=== PATIENT | female | born 1955 | race Caucasian/White ===

== ENCOUNTER 2019-04-09 15:09 | Inpatient (IN) ==
[2019-04-09] MEDS ORDERED: Ipratropium/Albuterol Neb 3 ML IH ONE (15:44)
[2019-04-09 16:11] LABS: Basophils # 0.1 K/mcL (0.0-0.2); Basophils % 0.3 %; Eosinophils % 0.1 %; Hematocrit 36.9 % (35.3-44.9); Hemoglobin 12.3 g/dL (11.5-15.4); Immature Granulocytes % 3.5 % (0-4); Lymphocytes % 4.3 %; Mean Corpuscular HGB Conc 33.3 g/dL (31.6-35.5); Mean Corpuscular Volume 92.9 fL (83.0-100.0); Mean Platelet Volume 9.1 fL (9.4-12.4); Monocytes # 1.1 K/mcL (0.0-1.3); Platelet Count 337 K/mcL (140-400); Red Blood Count 3.97 M/mcL (3.82-4.97); Red Cell Distribution Width 13.1 % (11.5-14.5); Segmented Neutrophils % 86.8 %
[2019-04-09 16:16] LABS: VBG HCO3 30 mEq/L (21-27); VBG PCO2 49 mmHg (41-51); VBG PO2 59 mmHg (25-50)
[2019-04-09] MEDS ORDERED: Isovue-370 500 ML BOTTLE IVP ONE (16:17)
[2019-04-09 16:41] LABS: BUN/Creatinine Ratio 15 (6-26); Blood Urea Nitrogen 13 mg/dL (8-23); Calcium 8.8 mg/dL (8.6-10.3); Carbon Dioxide 28 mEq/L (23-29); Chloride 95 mEq/L (98-107); Glucose 277 mg/dL (70-105); Osmolality,Calculated 288 (280-300); Potassium 4.1 mEq/L (3.5-5.1); Sodium 134 mEq/L (136-145); Troponin I 0.03 ng/mL (< 0.04); eGFR For African Americans > 60 (> 60); eGFR For Non-African Americans > 60 (> 60)
[2019-04-09] MEDS ORDERED: levoFLOXacin 750 MG/150 ML 750 MG/150 ML BAG IVPB ONE (17:01)
[2019-04-09] MEDS ORDERED: Naloxone 0.4 MG/ML INJ IVP PRN (17:08)
[2019-04-09] MEDS ORDERED: Ondansetron 4 MG/2 ML VIAL IVP PRN (17:08)
[2019-04-09 17:35] LABS: Prothrombin Time 22.4 Seconds (9.4-12.1)
[2019-04-09 17:38] LABS: Activated Partial Thrombo Time 36.9 Seconds (26.0-36.0)
[2019-04-09] MEDS ORDERED: MethylPREDNISolone 40 MG/ML VIAL IVP SCH (18:00)
[2019-04-09] MEDS ORDERED: *HR* OxyCODONE/APAP 10/325 TABLET PO STA (18:34)
[2019-04-09] MEDS: Ipratropium/Albuterol Neb 3 ML IH SCH (20:17)
[2019-04-09] MEDS ORDERED: Apixaban 5 MG TABLET PO SCH (21:00)
[2019-04-09] MEDS ORDERED: traZODone 50 MG TABLET PO SCH (21:00)
[2019-04-09] MEDS ORDERED: Metoprolol 100 MG TABLET PO SCH (21:00)
[2019-04-09] MEDS: MethylPREDNISolone 40 MG/ML VIAL IVP SCH (21:40)
[2019-04-09] MEDS: Pregabalin 75 MG CAPSULE PO SCH (21:43)
[2019-04-09] MEDS: Apixaban 5 MG TABLET PO SCH (21:43)
[2019-04-09] MEDS ORDERED: traZODone 50 MG TABLET PO ONE (23:22)
[2019-04-10] MEDS: Ipratropium/Albuterol Neb 3 ML IH SCH ×7 (00:03→23:20)
[2019-04-10] MEDS: MethylPREDNISolone 40 MG/ML VIAL IVP SCH ×3 (00:32→16:17)
[2019-04-10] MEDS ORDERED: *HR* OxyCODONE Immed Rel 5 MG TABLET PO ONE (02:55)
[2019-04-10 04:18] LABS: Adenovirus Not Detected (Not Detect); Bordetella Pertussis Not Detected (Not Detect); Chlamydophila pneumoniae Not Detected (Not Detect); Coronavirus 229E Not Detected (Not Detect); Coronavirus HKU1 Not Detected (Not Detect); Coronavirus NL63 Not Detected (Not Detect); Coronavirus OC43 Not Detected (Not Detect); Human Metapneumovirus Not Detected (Not Detect); Human Rhinovirus/Enterovirus Not Detected (Not Detect); Influenza A Subtype 2009 H1 Not Detected (Not Detect); Influenza B Not Detected (Not Detect); Mycoplasma pneumoniae Not Detected (Not Detect); Parainfluenza Virus 1 Not Detected (Not Detect); Parainfluenza Virus 2 Not Detected (Not Detect); Parainfluenza Virus 3 Not Detected (Not Detect); Parainfluenza Virus 4 Not Detected (Not Detect); Respiratory Syncytial Virus Not Detected (Not Detect)
[2019-04-10 04:18] LABS: Basophils % 0.2 %; Hematocrit 34.2 % (35.3-44.9); Hemoglobin 11.1 g/dL (11.5-15.4); Immature Granulocytes % 2.4 % (0-4); Lymphocytes # 0.9 K/mcL (0.6-4.6); Mean Corpuscular HGB Conc 32.5 g/dL (31.6-35.5); Mean Corpuscular Hemoglobin 31.3 pg (28.0-33.3); Mean Corpuscular Volume 96.3 fL (83.0-100.0); Mean Platelet Volume 9.1 fL (9.4-12.4); Monocytes # 0.5 K/mcL (0.0-1.3); Monocytes % 2.2 %; Neutrophils # 20.5 K/mcL (1.6-8.9); Platelet Count 297 K/mcL (140-400); Red Blood Count 3.55 M/mcL (3.82-4.97); Red Cell Distribution Width 12.8 % (11.5-14.5); Segmented Neutrophils % 91.2 %; White Blood Count 22.4 K/mcL (4.3-11.1)
[2019-04-10 04:46] LABS: BUN/Creatinine Ratio 14 (6-26); Blood Urea Nitrogen 10 mg/dL (8-23); Calcium 8.7 mg/dL (8.6-10.3); Carbon Dioxide 27 mEq/L (23-29); Chloride 95 mEq/L (98-107); Glucose 224 mg/dL (70-105); Magnesium 2.1 mg/dL (1.6-2.6); Osmolality,Calculated 282 (280-300); Potassium 4.5 mEq/L (3.5-5.1); Sodium 133 mEq/L (136-145); eGFR For African Americans > 60 (> 60); eGFR For Non-African Americans > 60 (> 60)
[2019-04-10] MEDS: Budesonide/Formoterol 160/4.5 1 PUFF INH IH SCH (07:19)
[2019-04-10] MEDS ORDERED: FLUoxetine 20 MG CAPSULE PO SCH (09:00)
[2019-04-10] MEDS: Aspirin Enteric Coated 81 MG Tablet PO SCH (09:28)
[2019-04-10] MEDS: BuPROPion XL (24 HR) 150 MG TABLET PO SCH (09:28)
[2019-04-10] MEDS: Loratadine 10 MG TABLET PO SCH (09:28)
[2019-04-10] MEDS: Cholecalciferol (D-3) 1,000 UNIT (25MCG) TABLET PO SCH (09:28)
[2019-04-10] MEDS: Apixaban 5 MG TABLET PO SCH ×2 (09:29→21:22)
[2019-04-10] MEDS: Pregabalin 75 MG CAPSULE PO SCH ×2 (09:29→21:21)
[2019-04-10] MEDS: cefTRIAXone 1,000 MG in Water for inj. (sterile) 10 ML IVP SCH (09:37)
[2019-04-10] MEDS: Azithromycin 500 MG in 0.9 % Sodium Chloride 250 ML IVPB SCH (09:41)
[2019-04-10] MEDS: Fluticasone Propionate Nasal 50 MCG/SPRAY BOTTLE NS SCH (09:44)
[2019-04-10] MEDS ORDERED: tiZANidine 4 MG TABLET PO PRN (10:19)
[2019-04-10] MEDS: *HR* OxyCODONE/APAP 10/325 TABLET PO PRN ×2 (13:10→20:12)
[2019-04-10] MEDS ORDERED: Cefepime HCl 1,000 MG in Water for inj. (sterile) 10 ML IVP ONE (17:02)
[2019-04-10] MEDS: traZODone 50 MG TABLET PO SCH (21:20)
[2019-04-10] MEDS: Azelastine 0.1% Nasal Spray 30 ML BOTTLE NS SCH (21:22)
[2019-04-10] MEDS: Tobramycin/Dex Opth DROPS 2.5 ML BOTTLE RIGHT EYE SCH (21:23)
[2019-04-11] MEDS: *HR* OxyCODONE/APAP 10/325 TABLET PO PRN ×3 (00:41→21:47)
[2019-04-11] MEDS: MethylPREDNISolone 40 MG/ML VIAL IVP SCH ×3 (00:42→15:21)
[2019-04-11] MEDS: Ipratropium/Albuterol Neb 3 ML IH SCH ×5 (03:40→19:49)
[2019-04-11 05:39] LABS: Basophils % 0.2 %; Hemoglobin 10.9 g/dL (11.5-15.4); Immature Granulocytes % 2.2 % (0-4); Lymphocytes # 0.9 K/mcL (0.6-4.6); Lymphocytes % 4.2 %; Mean Corpuscular HGB Conc 32.1 g/dL (31.6-35.5); Mean Corpuscular Hemoglobin 31.1 pg (28.0-33.3); Mean Corpuscular Volume 96.9 fL (83.0-100.0); Mean Platelet Volume 9.2 fL (9.4-12.4); Monocytes # 0.8 K/mcL (0.0-1.3); Monocytes % 3.8 %; Neutrophils # 19.1 K/mcL (1.6-8.9); Platelet Count 331 K/mcL (140-400); Red Blood Count 3.51 M/mcL (3.82-4.97); Red Cell Distribution Width 12.8 % (11.5-14.5); Segmented Neutrophils % 89.6 %; White Blood Count 21.3 K/mcL (4.3-11.1)
[2019-04-11 05:49] LABS: BUN/Creatinine Ratio 16 (6-26); Blood Urea Nitrogen 12 mg/dL (8-23); Calcium 8.9 mg/dL (8.6-10.3); Carbon Dioxide 28 mEq/L (23-29); Chloride 95 mEq/L (98-107); Glucose 373 mg/dL (70-105); Osmolality,Calculated 291 (280-300); Potassium 4.1 mEq/L (3.5-5.1); Sodium 133 mEq/L (136-145); eGFR For African Americans > 60 (> 60); eGFR For Non-African Americans > 60 (> 60)
[2019-04-11] MEDS: Budesonide/Formoterol 160/4.5 1 PUFF INH IH SCH (07:33)
[2019-04-11] MEDS: Pregabalin 75 MG CAPSULE PO SCH ×2 (08:35→21:31)
[2019-04-11] MEDS: FLUoxetine 20 MG CAPSULE PO SCH (08:36)
[2019-04-11] MEDS: Loratadine 10 MG TABLET PO SCH (08:36)
[2019-04-11] MEDS: BuPROPion XL (24 HR) 150 MG TABLET PO SCH (08:37)
[2019-04-11] MEDS: Apixaban 5 MG TABLET PO SCH ×2 (08:37→21:30)
[2019-04-11] MEDS: Cholecalciferol (D-3) 1,000 UNIT (25MCG) TABLET PO SCH (08:37)
[2019-04-11] MEDS: Azithromycin 500 MG in 0.9 % Sodium Chloride 250 ML IVPB SCH (08:39)
[2019-04-11] MEDS: cefTRIAXone 1,000 MG in Water for inj. (sterile) 10 ML IVP SCH (08:41)
[2019-04-11] MEDS: Aspirin Enteric Coated 81 MG Tablet PO SCH (08:45)
[2019-04-11] MEDS: Metoprolol 100 MG TABLET PO SCH ×2 (08:47→21:31)
[2019-04-11] MEDS ORDERED: Pregabalin 75 MG CAPSULE PO ONE (09:15)
[2019-04-11] MEDS: Fluticasone Propionate Nasal 50 MCG/SPRAY BOTTLE NS SCH (10:16)
[2019-04-11] MEDS: Tobramycin/Dex Opth DROPS 2.5 ML BOTTLE RIGHT EYE SCH ×2 (10:19→21:36)
[2019-04-11] MEDS ORDERED: Dextrose Gel 15 GM/37.5 ML TUBE PO PRN ×2 (12:22)
[2019-04-11] MEDS ORDERED: D5% in Water 1,000 ML IVC PRN (12:22)
[2019-04-11] MEDS ORDERED: *HR* Dextrose 50 % in Water (Syg) 50 ML SYRINGE IVP PRN (12:22)
[2019-04-11] MEDS: Insulin LISPRO 300 UNITS/3 ML VIAL SQ SCH ×2 (17:37→21:31)
[2019-04-11] MEDS: traZODone 50 MG TABLET PO SCH (21:30)
[2019-04-11] MEDS: Azelastine 0.1% Nasal Spray 30 ML BOTTLE NS SCH (21:48)
[2019-04-12] MEDS: Ipratropium/Albuterol Neb 3 ML IH SCH ×7 (00:05→23:42)
[2019-04-12] MEDS ORDERED: Insulin DETEMIR 100 UNIT/ML X5UNITS SQ ONE (00:10)
[2019-04-12] MEDS: MethylPREDNISolone 40 MG/ML VIAL IVP SCH ×3 (01:00→20:06)
[2019-04-12 03:16] LABS: Basophils % 0.1 %; Hematocrit 30.2 % (35.3-44.9); Hemoglobin 10.1 g/dL (11.5-15.4); Immature Granulocytes % 1.4 % (0-4); Lymphocytes # 1.3 K/mcL (0.6-4.6); Lymphocytes % 7.5 %; Mean Corpuscular HGB Conc 33.4 g/dL (31.6-35.5); Mean Corpuscular Hemoglobin 31.3 pg (28.0-33.3); Mean Corpuscular Volume 93.5 fL (83.0-100.0); Mean Platelet Volume 8.9 fL (9.4-12.4); Monocytes % 5.9 %; Platelet Count 338 K/mcL (140-400); Red Blood Count 3.23 M/mcL (3.82-4.97); Red Cell Distribution Width 12.6 % (11.5-14.5); Segmented Neutrophils % 85.1 %; White Blood Count 17.6 K/mcL (4.3-11.1)
[2019-04-12 03:27] LABS: BUN/Creatinine Ratio 24 (6-26); Blood Urea Nitrogen 17 mg/dL (8-23); Calcium 8.8 mg/dL (8.6-10.3); Carbon Dioxide 30 mEq/L (23-29); Chloride 96 mEq/L (98-107); Glucose 293 mg/dL (70-105); Osmolality,Calculated 284 (280-300); Potassium 4.3 mEq/L (3.5-5.1); Sodium 131 mEq/L (136-145); eGFR For African Americans > 60 (> 60); eGFR For Non-African Americans > 60 (> 60)
[2019-04-12 06:32] LABS: Estimated Average Glucose 171 mg/dl
[2019-04-12] MEDS: Budesonide/Formoterol 160/4.5 1 PUFF INH IH SCH (07:50)
[2019-04-12] MEDS: Aspirin Enteric Coated 81 MG Tablet PO SCH (08:10)
[2019-04-12] MEDS: Cholecalciferol (D-3) 1,000 UNIT (25MCG) TABLET PO SCH (08:10)
[2019-04-12] MEDS: Apixaban 5 MG TABLET PO SCH ×2 (08:11→20:07)
[2019-04-12] MEDS: Metoprolol 100 MG TABLET PO SCH ×2 (08:12→20:07)
[2019-04-12] MEDS: FLUoxetine 20 MG CAPSULE PO SCH (08:13)
[2019-04-12] MEDS: Pregabalin 75 MG CAPSULE PO SCH ×2 (08:17→20:07)
[2019-04-12] MEDS: BuPROPion XL (24 HR) 150 MG TABLET PO SCH (08:18)
[2019-04-12] MEDS: cefTRIAXone 1,000 MG in Water for inj. (sterile) 10 ML IVP SCH (08:19)
[2019-04-12] MEDS: Loratadine 10 MG TABLET PO SCH (08:19)
[2019-04-12] MEDS: Azithromycin 500 MG in 0.9 % Sodium Chloride 250 ML IVPB SCH (08:21)
[2019-04-12] MEDS: Fluticasone Propionate Nasal 50 MCG/SPRAY BOTTLE NS SCH (08:21)
[2019-04-12] MEDS: Insulin LISPRO 300 UNITS/3 ML VIAL SQ SCH ×4 (08:23→20:06)
[2019-04-12] MEDS: Tobramycin/Dex Opth DROPS 2.5 ML BOTTLE RIGHT EYE SCH ×2 (08:26→20:09)
[2019-04-12] MEDS: Insulin DETEMIR 100 UNIT/ML X5UNITS SQ SCH ×2 (08:59→20:07)
[2019-04-12] MEDS: amLODIPine 5 MG TABLET PO SCH (13:21)
[2019-04-12] MEDS: *HR* OxyCODONE/APAP 10/325 TABLET PO PRN ×2 (13:27→23:29)
[2019-04-12] MEDS: traZODone 50 MG TABLET PO SCH (20:07)
[2019-04-12] MEDS: Azelastine 0.1% Nasal Spray 30 ML BOTTLE NS SCH (20:10)
[2019-04-13] MEDS: Ipratropium/Albuterol Neb 3 ML IH SCH ×6 (03:28→23:49)
[2019-04-13 04:46] LABS: Basophils % 0.1 %; Hematocrit 34.4 % (35.3-44.9); Immature Granulocytes % 0.9 % (0-4); Lymphocytes # 1.4 K/mcL (0.6-4.6); Mean Corpuscular Volume 96.9 fL (83.0-100.0); Mean Platelet Volume 8.9 fL (9.4-12.4); Monocytes # 0.9 K/mcL (0.0-1.3); Monocytes % 5.5 %; Platelet Count 340 K/mcL (140-400); Red Blood Count 3.55 M/mcL (3.82-4.97); Red Cell Distribution Width 12.3 % (11.5-14.5); Segmented Neutrophils % 84.5 %; White Blood Count 15.4 K/mcL (4.3-11.1)
[2019-04-13 05:06] LABS: BUN/Creatinine Ratio 23 (6-26); Blood Urea Nitrogen 19 mg/dL (8-23); Carbon Dioxide 32 mEq/L (23-29); Chloride 96 mEq/L (98-107); Glucose 258 mg/dL (70-105); Osmolality,Calculated 285 (280-300); Potassium 4.2 mEq/L (3.5-5.1); Sodium 132 mEq/L (136-145); eGFR For African Americans > 60 (> 60); eGFR For Non-African Americans > 60 (> 60)
[2019-04-13] MEDS: Budesonide/Formoterol 160/4.5 1 PUFF INH IH SCH (07:33)
[2019-04-13] MEDS: FLUoxetine 20 MG CAPSULE PO SCH (08:12)
[2019-04-13] MEDS: Metoprolol 100 MG TABLET PO SCH ×2 (08:12→20:01)
[2019-04-13] MEDS: Cholecalciferol (D-3) 1,000 UNIT (25MCG) TABLET PO SCH (08:12)
[2019-04-13] MEDS: amLODIPine 5 MG TABLET PO SCH (08:12)
[2019-04-13] MEDS: Azithromycin 500 MG in 0.9 % Sodium Chloride 250 ML IVPB SCH (08:13)
[2019-04-13] MEDS: BuPROPion XL (24 HR) 150 MG TABLET PO SCH (08:13)
[2019-04-13] MEDS: Pregabalin 75 MG CAPSULE PO SCH ×2 (08:13→20:01)
[2019-04-13] MEDS: Apixaban 5 MG TABLET PO SCH ×2 (08:13→20:01)
[2019-04-13] MEDS: cefTRIAXone 1,000 MG in Water for inj. (sterile) 10 ML IVP SCH (08:14)
[2019-04-13] MEDS: MethylPREDNISolone 40 MG/ML VIAL IVP SCH ×2 (08:14→20:02)
[2019-04-13] MEDS: Fluticasone Propionate Nasal 50 MCG/SPRAY BOTTLE NS SCH (08:15)
[2019-04-13] MEDS: Tobramycin/Dex Opth DROPS 2.5 ML BOTTLE RIGHT EYE SCH ×2 (08:16→20:03)
[2019-04-13] MEDS: Insulin LISPRO 300 UNITS/3 ML VIAL SQ SCH ×4 (08:16→20:12)
[2019-04-13] MEDS: Insulin DETEMIR 100 UNIT/ML X5UNITS SQ SCH ×2 (08:50→20:12)
[2019-04-13] MEDS: Aspirin Enteric Coated 81 MG Tablet PO SCH (08:51)
[2019-04-13] MEDS: Loratadine 10 MG TABLET PO SCH (09:30)
[2019-04-13] MEDS ORDERED: Isovue-370 500 ML BOTTLE IVP ONE (13:39)
[2019-04-13] MEDS: *HR* OxyCODONE/APAP 10/325 TABLET PO PRN (13:55)
[2019-04-13] MEDS: traZODone 50 MG TABLET PO SCH (20:01)
[2019-04-13] MEDS: Azelastine 0.1% Nasal Spray 30 ML BOTTLE NS SCH (20:03)
[2019-04-14] MEDS: *HR* OxyCODONE/APAP 10/325 TABLET PO PRN ×4 (00:13→20:43)
[2019-04-14] MEDS: Ipratropium/Albuterol Neb 3 ML IH SCH ×5 (03:49→20:18)
[2019-04-14 05:09] LABS: Basophils % 0.1 %; Hematocrit 33.4 % (35.3-44.9); Hemoglobin 11.1 g/dL (11.5-15.4); Immature Granulocytes % 1.1 % (0-4); Lymphocytes # 1.4 K/mcL (0.6-4.6); Lymphocytes % 9.8 %; Mean Corpuscular HGB Conc 33.2 g/dL (31.6-35.5); Mean Corpuscular Hemoglobin 30.7 pg (28.0-33.3); Mean Corpuscular Volume 92.3 fL (83.0-100.0); Mean Platelet Volume 8.7 fL (9.4-12.4); Monocytes # 0.7 K/mcL (0.0-1.3); Platelet Count 357 K/mcL (140-400); Red Blood Count 3.62 M/mcL (3.82-4.97); Red Cell Distribution Width 12.2 % (11.5-14.5); White Blood Count 14.3 K/mcL (4.3-11.1)
[2019-04-14 05:15] LABS: INR 1.3; Prothrombin Time 14.7 Seconds (9.4-12.1)
[2019-04-14 05:31] LABS: BUN/Creatinine Ratio 26 (6-26); Blood Urea Nitrogen 18 mg/dL (8-23); Calcium 8.6 mg/dL (8.6-10.3); Carbon Dioxide 28 mEq/L (23-29); Chloride 96 mEq/L (98-107); Glucose 218 mg/dL (70-105); Osmolality,Calculated 283 (280-300); Potassium 4.1 mEq/L (3.5-5.1); Sodium 132 mEq/L (136-145); eGFR For African Americans > 60 (> 60); eGFR For Non-African Americans > 60 (> 60)
[2019-04-14] MEDS: Budesonide/Formoterol 160/4.5 1 PUFF INH IH SCH (07:19)
[2019-04-14] MEDS: Azithromycin 500 MG in 0.9 % Sodium Chloride 250 ML IVPB SCH ×2 (07:58→08:18)
[2019-04-14] MEDS: MethylPREDNISolone 40 MG/ML VIAL IVP SCH ×2 (07:59→15:38)
[2019-04-14] MEDS: cefTRIAXone 1,000 MG in Water for inj. (sterile) 10 ML IVP SCH ×2 (07:59→08:18)
[2019-04-14] MEDS: Aspirin Enteric Coated 81 MG Tablet PO SCH (08:00)
[2019-04-14] MEDS: BuPROPion XL (24 HR) 150 MG TABLET PO SCH (08:00)
[2019-04-14] MEDS: FLUoxetine 20 MG CAPSULE PO SCH (08:00)
[2019-04-14] MEDS: Loratadine 10 MG TABLET PO SCH (08:00)
[2019-04-14] MEDS: Metoprolol 100 MG TABLET PO SCH ×2 (08:01→20:44)
[2019-04-14] MEDS: Cholecalciferol (D-3) 1,000 UNIT (25MCG) TABLET PO SCH (08:01)
[2019-04-14] MEDS: Pregabalin 75 MG CAPSULE PO SCH ×2 (08:01→20:44)
[2019-04-14] MEDS: amLODIPine 5 MG TABLET PO SCH (08:01)
[2019-04-14] MEDS: Fluticasone Propionate Nasal 50 MCG/SPRAY BOTTLE NS SCH (08:05)
[2019-04-14] MEDS: Tobramycin/Dex Opth DROPS 2.5 ML BOTTLE RIGHT EYE SCH ×2 (08:05→20:51)
[2019-04-14] MEDS: Insulin LISPRO 300 UNITS/3 ML VIAL SQ SCH ×4 (08:14→20:50)
[2019-04-14] MEDS: Insulin DETEMIR 100 UNIT/ML X5UNITS SQ SCH ×2 (08:15→20:45)
[2019-04-14 10:17] LABS: Lactate Dehydrogenase 217 Units/L (140-271)
[2019-04-14] MEDS: levoFLOXacin 750 MG/150 ML 750 MG/150 ML BAG IVPB SCH ×2 (10:58→14:33)
[2019-04-14] MEDS: Piperacillin/Tazobactam 3.375 GM in 0.9 % Sodium Chloride Mini Bag 100 ML IVPB SCH ×2 (11:11→18:46)
[2019-04-14] MEDS: Apixaban 5 MG TABLET PO SCH (20:45)
[2019-04-14] MEDS: traZODone 50 MG TABLET PO SCH (20:45)
[2019-04-14] MEDS: Azelastine 0.1% Nasal Spray 30 ML BOTTLE NS SCH (20:50)
[2019-04-15] MEDS: MethylPREDNISolone 40 MG/ML VIAL IVP SCH ×4 (00:26→23:29)
[2019-04-15] MEDS: Ipratropium/Albuterol Neb 3 ML IH SCH ×7 (00:27→23:33)
[2019-04-15] MEDS: Piperacillin/Tazobactam 3.375 GM in 0.9 % Sodium Chloride Mini Bag 100 ML IVPB SCH ×3 (03:08→19:59)
[2019-04-15 05:08] LABS: Basophils % 0.1 %; Eosinophils % 0.1 %; Hematocrit 34.8 % (35.3-44.9); Hemoglobin 11.3 g/dL (11.5-15.4); Immature Granulocytes % 1.4 % (0-4); Lymphocytes # 1.1 K/mcL (0.6-4.6); Lymphocytes % 7.3 %; Mean Corpuscular HGB Conc 32.5 g/dL (31.6-35.5); Mean Corpuscular Hemoglobin 30.4 pg (28.0-33.3); Mean Corpuscular Volume 93.5 fL (83.0-100.0); Mean Platelet Volume 8.7 fL (9.4-12.4); Monocytes # 0.6 K/mcL (0.0-1.3); Monocytes % 3.9 %; Neutrophils # 12.7 K/mcL (1.6-8.9); Platelet Count 368 K/mcL (140-400); Red Blood Count 3.72 M/mcL (3.82-4.97); Red Cell Distribution Width 11.9 % (11.5-14.5); Segmented Neutrophils % 87.2 %; White Blood Count 14.6 K/mcL (4.3-11.1)
[2019-04-15 05:29] LABS: BUN/Creatinine Ratio 24 (6-26); Blood Urea Nitrogen 16 mg/dL (8-23); Calcium 8.8 mg/dL (8.6-10.3); Carbon Dioxide 30 mEq/L (23-29); Chloride 97 mEq/L (98-107); Glucose 182 mg/dL (70-105); Osmolality,Calculated 286 (280-300); Potassium 4.3 mEq/L (3.5-5.1); Sodium 135 mEq/L (136-145); eGFR For African Americans > 60 (> 60); eGFR For Non-African Americans > 60 (> 60)
[2019-04-15] MEDS: Budesonide/Formoterol 160/4.5 1 PUFF INH IH SCH (07:31)
[2019-04-15] MEDS: Metoprolol 100 MG TABLET PO SCH ×2 (08:22→19:52)
[2019-04-15] MEDS: FLUoxetine 20 MG CAPSULE PO SCH (08:22)
[2019-04-15] MEDS: Apixaban 5 MG TABLET PO SCH ×2 (08:22→19:51)
[2019-04-15] MEDS: Aspirin Enteric Coated 81 MG Tablet PO SCH (08:22)
[2019-04-15] MEDS: Loratadine 10 MG TABLET PO SCH (08:22)
[2019-04-15] MEDS: Pregabalin 75 MG CAPSULE PO SCH ×2 (08:23→19:50)
[2019-04-15] MEDS: amLODIPine 5 MG TABLET PO SCH (08:23)
[2019-04-15] MEDS: Cholecalciferol (D-3) 1,000 UNIT (25MCG) TABLET PO SCH (08:23)
[2019-04-15] MEDS: BuPROPion XL (24 HR) 150 MG TABLET PO SCH (08:23)
[2019-04-15] MEDS: Insulin DETEMIR 100 UNIT/ML X5UNITS SQ SCH ×2 (08:25→20:01)
[2019-04-15] MEDS: Fluticasone Propionate Nasal 50 MCG/SPRAY BOTTLE NS SCH (08:25)
[2019-04-15] MEDS: Insulin LISPRO 300 UNITS/3 ML VIAL SQ SCH ×4 (08:31→20:01)
[2019-04-15] MEDS ORDERED: (Mirabegron [Myrbetriq] 50 MG) PO SCH (09:00)
[2019-04-15] MEDS: *HR* OxyCODONE/APAP 10/325 TABLET PO PRN ×3 (10:02→20:42)
[2019-04-15] MEDS: Tobramycin/Dex Opth DROPS 2.5 ML BOTTLE RIGHT EYE SCH ×2 (10:04→19:48)
[2019-04-15] MEDS: Azelastine 0.1% Nasal Spray 30 ML BOTTLE NS SCH (19:48)
[2019-04-15] MEDS: traZODone 50 MG TABLET PO SCH (19:51)
[2019-04-16 00:49] LABS: Basophils % 0.1 %; Eosinophils % 0.1 %; Hematocrit 31.3 % (35.3-44.9); Hemoglobin 10.3 g/dL (11.5-15.4); Immature Granulocytes % 1.2 % (0-4); Lymphocytes # 1.4 K/mcL (0.6-4.6); Lymphocytes % 8.9 %; Mean Corpuscular HGB Conc 32.9 g/dL (31.6-35.5); Mean Corpuscular Hemoglobin 31.2 pg (28.0-33.3); Mean Corpuscular Volume 94.8 fL (83.0-100.0); Mean Platelet Volume 8.8 fL (9.4-12.4); Monocytes # 0.9 K/mcL (0.0-1.3); Monocytes % 5.5 %; Platelet Count 351 K/mcL (140-400); Red Cell Distribution Width 12.1 % (11.5-14.5); Segmented Neutrophils % 84.2 %; White Blood Count 15.4 K/mcL (4.3-11.1)
[2019-04-16 01:05] LABS: BUN/Creatinine Ratio 26 (6-26); Blood Urea Nitrogen 20 mg/dL (8-23); Calcium 8.5 mg/dL (8.6-10.3); Carbon Dioxide 27 mEq/L (23-29); Chloride 95 mEq/L (98-107); Glucose 206 mg/dL (70-105); Osmolality,Calculated 279 (280-300); Potassium 4.5 mEq/L (3.5-5.1); Sodium 130 mEq/L (136-145); eGFR For African Americans > 60 (> 60); eGFR For Non-African Americans > 60 (> 60)
[2019-04-16] MEDS: Piperacillin/Tazobactam 3.375 GM in 0.9 % Sodium Chloride Mini Bag 100 ML IVPB SCH ×2 (03:04→09:26)
[2019-04-16] MEDS: Ipratropium/Albuterol Neb 3 ML IH SCH ×4 (03:47→16:15)
[2019-04-16 07:25] VITALS: BP 133/66
[2019-04-16] MEDS: Budesonide/Formoterol 160/4.5 1 PUFF INH IH SCH (07:34)
[2019-04-16] MEDS: FLUoxetine 20 MG CAPSULE PO SCH (09:22)
[2019-04-16] MEDS: amLODIPine 5 MG TABLET PO SCH (09:23)
[2019-04-16] MEDS: BuPROPion XL (24 HR) 150 MG TABLET PO SCH (09:23)
[2019-04-16] MEDS: Cholecalciferol (D-3) 1,000 UNIT (25MCG) TABLET PO SCH (09:23)
[2019-04-16] MEDS: Metoprolol 100 MG TABLET PO SCH (09:23)
[2019-04-16] MEDS: Loratadine 10 MG TABLET PO SCH (09:23)
[2019-04-16] MEDS: Aspirin Enteric Coated 81 MG Tablet PO SCH (09:23)
[2019-04-16] MEDS: Apixaban 5 MG TABLET PO SCH (09:24)
[2019-04-16] MEDS: Pregabalin 75 MG CAPSULE PO SCH (09:24)
[2019-04-16] MEDS: MethylPREDNISolone 40 MG/ML VIAL IVP SCH (09:25)
[2019-04-16] MEDS: Insulin LISPRO 300 UNITS/3 ML VIAL SQ SCH ×2 (09:25→13:27)
[2019-04-16] MEDS: Fluticasone Propionate Nasal 50 MCG/SPRAY BOTTLE NS SCH (09:27)
[2019-04-16] MEDS: Tobramycin/Dex Opth DROPS 2.5 ML BOTTLE RIGHT EYE SCH (09:27)
[2019-04-16] MEDS: Insulin DETEMIR 100 UNIT/ML X5UNITS SQ SCH (09:30)
[2019-04-16] MEDS: *HR* OxyCODONE/APAP 10/325 TABLET PO PRN (09:30)
== END 2019-04-16 17:32 | disposition home or self-care (01) | DRG 193 ==
LOC: EMEROOARM 15:09 → 2NENU 18:23 → SUATTDRO 18:23 → 2NENU 19:42
PROVIDERS: ADMIT Pharmacist; ATTEND Internal Medicine